=== PATIENT | male | born 1950 | race Caucasian/White ===

== ENCOUNTER → 2016-07-18 | Outpatient (CLI) | payer OTHER, MEDICARE ==
[~2016-07-18] MED LIST: ACET-1138 PO; AMIO0.1T PO; ATOR10TA88 PO; CETI10TA84 PO; CRD200 PO; CZR50 PO; GLC/500 PO; METF1000 PO; MULT-506 PO; NAPR1TAB9 PO; OXYSR10 PO; RXC5 PO; SNK PO; WARF5TAB90 PO; WARF7.5T PO
--- NOTE | 2016-07-18 14:26 | DIAGNOSTIC IMAGING REPORT ---
BONE SCAN 3 PHASE LIMITED CLINICAL HISTORY: Right knee loosening with pain. TECHNIQUE: Immediately and 3 hours following the intravenous administration of 25.6 mCi of technetium 99 M MDP, 3 phase bone scan of the knees was performed. COMPARISON STUDY: Right knee radiograph 07/24/2015. FINDINGS: There is abnormal three-phase soft tissue/periprosthetic uptake within the right knee. This involves the femoral, patellar, and tibial regions. IMPRESSION: Abnormal three-phase uptake within the right knee which is concerning for infected joint prosthesis. Electronically signed by: Zach Marie M.D. 07/18/2016 2:24 PM Dictated Date/Time: 07/18/2016 2:14 PM
== END | disposition home or self-care (01) ==
LOC: C.NUCL 10:12
PROVIDERS: ATTEND Orthopaedic Surgery Sports Medicine
DX: T84.038D Mechanical loosening of other internal prosthetic joint, subsequent encounter (principal); Y83.1 Surgical operation with implant of artificial internal device as the cause of abnormal reaction of the patient, or of later complication, without mention of misadventure at the time of the procedure; Z96.651 Presence of right artificial knee joint

== ENCOUNTER 2016-11-26 10:22 | Inpatient (IN) | payer OTHER, MEDICARE ==
[2016-11-12 08:26] VITALS: BMI 31.0
--- NOTE | 2016-11-12 08:53 | PAT Medication Instructions ---
Service Date November 12, 2016. Current Home Medication List Amiodarone HCl (Amiodarone HCl), 200 MG PO BID Atorvastatin (Lipitor), 10 MG PO HS Cetirizine (Zyrtec), 10 MG PO prn Losartan Potassium (Losartan Potassium), 50 MG PO QAM Metformin Hcl (Glucophage), 1,000 MG PO BID Multivitamin (Multivitamin), 1 TAB PO QAM Naproxen (Aleve), 2 TAB PO Q12 PRN for Pain Warfarin Sodium (Coumadin), 5 MG PO QPM Medication Instructions For Your Scheduled Surgery - Hold the following medications per Promotional Marketing Analyst's instructions: Warfarin Sodium (Coumadin), 5 MG PO QPM - Hold the following medications 7 days prior to surgery per surgeon's instructions: Naproxen (Aleve), 2 TAB PO Q12 PRN for Pain - Hold the following medications 48 hours prior to surgery: Metformin Hcl (Glucophage), 1,000 MG PO BID - Hold the following medications the morning of surgery: Losartan Potassium (Losartan Potassium), 50 MG PO QAM Multivitamin (Multivitamin), 1 TAB PO QAM Cetirizine (Zyrtec), 10 MG PO prn - Take the following medications the morning of surgery with a sip of water OTHERWISE NOTHING TO EAT OR DRINK AFTER MIDNIGHT: Amiodarone HCl (Amiodarone HCl), 200 MG PO BID - Take the following medications as scheduled the night before surgery: Amiodarone HCl (Amiodarone HCl), 200 MG PO BID Atorvastatin (Lipitor), 10 MG PO HS If you have any questions please call us at [phone] or [phone] or [phone]
--- NOTE | 2016-11-12 09:22 | DIAGNOSTIC IMAGING REPORT ---
CHEST PREADMISSION(PA/LAT) CLINICAL HISTORY: Preoperative chest COMPARISON STUDY: 07/19/2015 FINDINGS: The cardiac and mediastinal contours are normal. There is no evidence of focal pulmonary consolidation. There is no evidence of failure. No pleural effusions are visualized.[ IMPRESSION: No active disease in the chest. Electronically signed by: Rey Yanez M.D. 11/12/2016 9:21 AM Dictated Date/Time: 11/12/2016 9:21 AM
[2016-11-12 09:23] LABS: URINE APPEARANCE CLEAR (CLEAR); URINE BILIRUBIN NEG (NEG); URINE COLOR YELLOW; URINE NITRITE NEG (NEG); URINE PH 6.5 (4.5-7.5); URINE SPECIFIC GRAVITY 1.019 (1.000-1.030); UROBILINOGEN NEG (NEG)
[2016-11-12 09:24] LABS: BASO % 0.3 %; BASO ABS # 0.02 K/uL (0-0.2); COMPLETE YES; EOS % 3.1 %; HEMATOCRIT 40.5 % (42-52); IG% 1.5 %; LYMPH % 18.7 %; LYMPH ABS # 1.13 K/uL (1.2-3.4); MEAN CELL VOLUME 93.5 fL (80-100); MEAN CORPUSCULAR HEMOGLOBIN 30.3 pg (25-34); MEAN CORPUSCULAR HGB CONC 32.3 g/dl (32-36); MEAN PLATELET VOLUME 9.8 fL (7.4-10.4); NEUT % 69.4 %; PLATELET COUNT 207 K/uL (130-400); RED BLOOD COUNT 4.33 M/uL (4.7-6.1); WHITE BLOOD COUNT 6.04 K/uL (4.8-10.8)
[2016-11-12 09:25] LABS: MANUAL MICROSCOPIC REQUIRED? NO; REVIEW REQ? NO
[2016-11-12 09:30] LABS: CREATININE 0.8 mg/dl (0.60-1.40)
[2016-11-12 09:31] LABS: BUN/CREATININE RATIO 23.7 (10-20); CALCIUM 9.3 mg/dl (8.5-10.1); INR 1.5 (0.9-1.1); PARTIAL THROMBOPLASTIN RATIO 1.3; POTASSIUM 4.7 mmol/L (3.5-5.1)
[2016-11-12 11:02] LABS: ESTIMATED AVERAGE GLUCOSE 143 mg/dl; HA1C FLAG Normal (Normal)
--- NOTE | 2016-11-19 09:19 | HISTORY & PHYSICAL EXAMINATION ---
DATE OF ADMISSION: 11/26/2016 DATE OF SURGERY: 11/26/2016. PROCEDURE: Right knee arthrotomy, patellar component revision versus total knee revision. HISTORY OF PRESENT ILLNESS: Mr. Ward is a jm 66-year-old male who presents for preoperative evaluation prior to a right total knee replacement revision. He states that he had his right knee replaced on 06/14/[address] Staton. He did well postoperatively. Then on July of 2015 he underwent a revision patellar component to his cemented domed patella with excision of fragment for a patellar fracture that he sustained. Diagnosis at that time was a patellar fracture with loose patellar component, he also underwent a poly change to a 21 mm nonconstrained poly. Since then, patient did rehab and did well. However, over the past few months he has noticed increased crepitation and anterior knee pain. He did undergo a bone scan on 07/18/2016 which showed possible abnormalities around the femoral, patellar and tibial regions. X-rays showing fragmentation of his patella component. After discussing further care will proceed with right knee arthrotomy, patellar component revision, possible trabecular patellar component, versus total knee revision. PAST MEDICAL HISTORY: 1. Hypertension. 2. High cholesterol. 3. Diabetes. 4. History of atrial fibrillation, currently being treated on Coumadin. PAST SURGICAL HISTORY: 1. Left knee replacement 2003. 2. Right total knee replacement in 2013. 3. Right knee revision patellar component and poly exchange in July 2015. 4. Left hip replacement. 5. Hernia repair. FAMILY HISTORY: Noncontributory. SOCIAL HISTORY: He denies a history of smoking or tobacco use. No alcohol consumption. REVIEW OF SYSTEMS: Otherwise negative. Please see HPI for pertinent positives. PHYSICAL EXAMINATION: GENERAL: Jm 66-year-old male in no acute distress. He is alert and oriented x3. HEAD, EYES, EARS, NOSE, AND THROAT: Normocephalic, atraumatic. CARDIAC: Regular rate and rhythm noted. Resting pulse 65 beats per minute. LUNGS: Clear to auscultation without rales or wheeze bilaterally. ABDOMEN: Soft, nontender. Bowel sounds present. EXTREMITIES: Right lower extremity is neurovascularly intact. Calves are soft and nontender. DP pulse +2. He has a well-healed surgical incision. He has normal anatomical alignment. He has diffuse tenderness to the knee which is greatest over the anterior knee joint. He has mild effusion. He has positive crepitation with motion, range of motion is 0/3/115. IMAGING: Reviewed show findings consistent with prior right total knee replacement. Plain films show no signs of loosening of the femoral or tibial components. There is fragmentation noted of his patella. Bone scan showing possible increased activity along all 3 components femoral, tibial, and patellar component of the right total knee replacement. IMPRESSIONS: 1. Painful right total knee replacement with loose patellar component. 2. Past medical history as outlined above. PLAN: Further care was discussed with [facility]. At this point in time, we will proceed with above-mentioned procedure. Will plan on resuming his Coumadin postoperatively. He will discuss with his clinical documentation manager whether bridging with Lovenox prior to this procedure would be necessary. Will plan on discharge home with outpatient physical therapy when stable.
[2016-11-26] VITALS (7 sets, daily range): BP systolic 111–149; BP diastolic 57–96; PULSE 56–66; TEMP 36.3–36.9; O2SAT 89–98; Ht 190.5 cm; Wt 114.0 kg
[~2016-11-26] VITALS: Ht 190.5 cm; Wt 114.0 kg
[~2016-11-26 10:22] MED LIST changes: -ACET-1138 PO; +ACETAMINOPHEN 500 MG TAB PO SCH; -AMIO0.1T PO; +ATOR10TA82 PO; -ATOR10TA88 PO; +ATROPINE SULFATE 0.1 MG/ML 5ML SYR IV PRN; +BUPIVACAINE 0.25% 30 ML VIAL ONE; +BUPIVACAINE 0.5 % 5 MG/1 ML PF 10ML VIAL ONE; +CEFAZOLIN 2000 MG/60 ML D5W 60 ML IV SCH; +DEXAMETHASONE 4 MG TAB PO SCH; +EpHEDrine SULFATE INJ 50 MG/ML AMP IV PRN; +FENTANYL CITRATE INJ 50 MCG/1 ML 2 ML VIAL IV PRN; +GABAPENTIN 300 MG CAP PO SCH; -GLC/500 PO; +HYDROmorphone INJ 1 MG/ML SYR IV PRN; +LABETALOL HCL IV 5 MG/ML 20ML IV PRN; +LACTATED RINGER'S 1000ML 1,000 ML IV SCH; +LACTATED RINGER'S 1000ML IV SCH; +LACTATED RINGER'S 500 ML IV SCH; +MEPERIDINE HCL 25 MG/ML CARP IV PRN; +METOCLOPRAMIDE HCL 10 MG TAB PO SCH; +ONDANSETRON INJ 2 MG/ML 2 ML VIAL IV PRN; -OXYSR10 PO; +ROPIVACAINE 5MG/ML 30 ML 150 MG, BUPIVACAINE/EPINEPHR 0.5% MPF 30 ML, KETOROLAC TROMETH... INFIL SCH; -RXC5 PO; -SNK PO; -WARF7.5T PO
[2016-11-26 11:31] LABS: PROTHROMBIN TIME (PATIENT) 10.9 SECONDS (9.0-12.0)
[2016-11-26] MEDS ORDERED: MIDAZOLAM HCL 1 MG/ML 2ML VIAL ONE (11:43)
[2016-11-26] MEDS ORDERED: FENTANYL CITRATE INJ 50 MCG/1 ML 2 ML VIAL ONE (11:43)
[2016-11-26] MEDS ORDERED: PROPOFOL IV EMULSION 10 MG/ML 20 ML VIAL IV ONE (11:43)
[2016-11-26] MEDS ORDERED: LIDOCAINE HCL 2% 2 ML VIAL (20MG/ML) ONE (11:43)
[2016-11-26] MEDS ORDERED: ONDANSETRON INJ 2 MG/ML 2 ML VIAL ONE (11:43)
--- NOTE | 2016-11-26 11:47 | History & Physical Bridge Note ---
H&P Re-Evaluation Bridge Note: I have examined the patient, reviewed the History & Physical and in the interval since the performance of the History & Physical I have noted the following changes of clinical significance: No changes noted
[2016-11-26] MEDS ORDERED: ORTHO JOINT ANESTHETIC ONE (12:21)
[2016-11-26] MEDS ORDERED: POVIDONE-IODINE OP SOLN 30 ML BTL ONE (12:21)
[2016-11-26] MEDS ORDERED: BACITRACIN 50000 UNIT VIAL ONE (12:21)
--- NOTE | 2016-11-26 14:24 | [facility] Post Operative Brief Note ---
Immediate Operative Summary Operative Date November 26, 2016. Pre-Operative Diagnosis Painful right total knee replacement with loose patellar component Post-Operative Diagnosis Same as preop Procedure(s) Performed Trabecular metal patella with poly change Rt tka Surgeon Dr. Staton School Bus Dispatcher Surgeon(s) Frank Deras PA-C Estimated Blood Loss 5cc Findings avascular fracture patella with fragmentation Specimens Microbiology 1. Joint Fluid Right Knee, gram stain, C& S, aerobic and anerobic left room at 1330 Complication(s) None Disposition Recovery Room / PACU
[2016-11-26] MEDS ORDERED: BISACODYL 10 MG SUPP PR PRN (14:30)
[2016-11-26] MEDS ORDERED: DiphenhydrAMINE HCL 50 MG/ML VIAL IV PRN (14:30)
[2016-11-26] MEDS ORDERED: ALUMINUM/MAGNESIUM/SIMETH (MAALOX MAX) 30 ML UDC PO PRN (14:30)
[2016-11-26] MEDS ORDERED: ZOLPIDEM TARTRATE 5 MG TAB PO PRN (14:30)
[2016-11-26] MEDS ORDERED: ONDANSETRON INJ 2 MG/ML 2 ML VIAL IV PRN (14:30)
[2016-11-26] MEDS ORDERED: CETIRIZINE HCL 10 MG TAB PO PRN (14:30)
[2016-11-26] MEDS ORDERED: SOD PHOSPHATE/SOD BIPHOSPHATE ENEMA 132 ML BTL PR PRN (14:30)
[2016-11-26] MEDS ORDERED: MAGNESIUM HYDROXIDE SUSP 30 ML UDC PO PRN (14:30)
[2016-11-26] MEDS ORDERED: METOCLOPRAMIDE HCL INJ 5 MG/ML 2 ML VIAL IV PRN (14:30)
[2016-11-26] MEDS ORDERED: MoRPHine SULFATE 2 MG/ML CARP IV PRN ×2 (15:00→17:00)
--- NOTE | 2016-11-26 15:28 | OPERATIVE REPORT ---
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 POSTOPERATIVE DIAGNOSIS: Same with mild laxity medial and lateral collateral ligaments. PROCEDURE: Arthrotomy, right knee with trabecular metal patella placement and upsized poly to a 21 x 6 constrained poly. SURGEON: Dr. Staton. BACK TENDER: Frank Deras PA-C who was necessary for prepping, draping, retraction, wound closure of deep fascia, subQ, and skin and was necessary for the case. ESTIMATED BLOOD LOSS: 5 mL. COMPLICATIONS: None. HISTORY OF PRESENT ILLNESS: The patient presents as a very pleasant 66-year-old white male who had undergone a previous knee replacement. Subsequently his postoperative course had a couple traumas and subsequently had developed fragmentation of his patella and loosening of his patellar component. Presents today for removal of his patellar component, placement trabecular metal. Preoperative sed rate, C-reactive protein all nonconsistent with any type of infectious process. Intraoperative Gram stain, no organisms noted. The knee had no gross visualization of any type of infectious process. The femoral and tibial components were well fixed, no evidence of any loosening was noted. The patella was loose freely floating fragment within the knee joint. It as well as multiple fragments of bone were removed. Trabecular metal patella was evaluated. Prior to placing this the poly was changed to a 21 x 6 mm constrained, gave excellent stability in both 0 degrees, 30 degrees and 60 degrees of flexion. No evidence of instability was noted. Subsequently, the poly was placed. The wound been thoroughly irrigated, the trabecular metal patella was sewn into the soft tissues and the main bony fragment of the patella without difficulty. The wound was irrigated with copious amounts of sterile saline solution. Patellar tracking was noted to be excellent. Subsequently all particulate matter and debris was removed. SubQ was closed with 2-0 Vicryl, skin was closed with jai. The patient was taken to recovery room in stable condition. I attest to the content of the Intraoperative Record and any orders documented therein. Any exceptio ns are noted below.
--- NOTE | 2016-11-26 15:36 | DIAGNOSTIC IMAGING REPORT ---
RIGHT KNEE 1 OR 2 VIEWS ROUTINE CLINICAL HISTORY: AP/LATERAL IN PACU RIGHT KNEE Right knee replacement COMPARISON: 07/24/2015 DISCUSSION: Total knee revision. Prosthetic is in good position. Surgical drains are in position. Expected soft tissue postoperative changes noted. Note is made of fragmentation of the [place] pelvis with replacement with what appears to be a patellar prosthetic. Expected soft tissue postoperative change IMPRESSION: Total right knee revision. Electronically signed by: Bob Santana M.D. 11/26/2016 3:35 PM Dictated Date/Time: 11/26/2016 3:34 PM
--- NOTE | 2016-11-26 15:55 | Anesthesiology Progress Note ---
Anesthesia Post Op Note Date & Time November 26, 2016 at 15:55 Vital Signs Pain Intensity: 0 Vital Signs Past 12 Hours Date Time Temp Pulse Resp B/P Pulse Ox O2 Delivery O2 Flow Rate FiO2 11/26/16 15:40 57 14 110/68 94 Nasal Cannula 2 11/26/16 15:25 36.3 57 18 118/69 97 Nasal Cannula 2 11/26/16 15:15 57 17 117/73 97 Nasal Cannula 2 11/26/16 15:05 55 15 115/69 95 Nasal Cannula 2 11/26/16 14:58 36.2 58 16 102/63 95 Nasal Cannula 2 11/26/16 11:02 36.7 59 20 149/78 94 Room Air Notes Mental Status: alert / awake / arousable, participated in evaluation Pt Amnestic to Procedure: Yes Nausea / Vomiting: adequately controlled Pain: adequately controlled Airway Patency, RR, SpO2: stable & adequate BP & HR: stable & adequate Hydration State: stable & adequate Neuraxial Anesthesia: was administered, sensory block is resolving Anesthetic Complications: no major complications apparent
[2016-11-26] MEDS: SODIUM CHLORIDE 0.9% 1000ML 1,000 ML IV SCH ×2 (16:25→16:30)
[2016-11-26] MEDS ORDERED: DEXTROSE 50% 50 ML SYR IV PRN (17:00)
[2016-11-26] MEDS ORDERED: GLUCOSE 40% GEL 15 GM TUBE PO PRN (17:00)
[2016-11-26] MEDS ORDERED: GLUCOSE 10 TABS/TUBE PO PRN (17:00)
[2016-11-26] MEDS ORDERED: MoRPHine SULFATE 4 MG/ML 1 ML CARP\\VIAL IV PRN (17:00)
[2016-11-26] MEDS ORDERED: GLUCAGON FOR INJ 1 MG VIAL SQ PRN (17:00)
[2016-11-26] MEDS ORDERED: MoRPHine SULFATE 10 MG/ML CARP/VIAL IV PRN (17:00)
[2016-11-26] MEDS: FERROUS GLUCONATE 324 MG TAB PO SCH (18:01)
[2016-11-26] MEDS: INSULIN ASPART 100 UNITS/ML 3 ML PEN SC SCH ×2 (18:02→21:49)
[2016-11-26] MEDS: WARFARIN SOD 5 MG TAB PO SCH (18:03)
[2016-11-26] MEDS ORDERED: METFORMIN HCL 500 MG TAB PO SCH (21:00)
[2016-11-26] MEDS ORDERED: ASPIRIN 325 MG ECTAB PO SCH (21:00)
[2016-11-26] MEDS: OXYCODONE HCL 10 MG TABCR (OXYCONTIN) PO SCH (21:50)
[2016-11-26] MEDS: SENNA 8.6 MG TAB PO SCH (21:50)
[2016-11-26] MEDS: AMIODARONE 200 MG TAB PO SCH (21:51)
[2016-11-26] MEDS: DOCUSATE SODIUM 100 MG CAP PO SCH (21:51)
[2016-11-26] MEDS: ATORVASTATIN 10 MG TAB PO SCH (21:51)
[2016-11-26] MEDS: ACETAMINOPHEN 500 MG TAB PO SCH (21:52)
[2016-11-26] MEDS: CEFAZOLIN IV 2,000 MG in DEXTROSE 5% 50ML 50 ML IV SCH (21:52)
[2016-11-27] MEDS: SODIUM CHLORIDE 0.9% 1000ML 1,000 ML IV SCH ×2 (00:01→10:07)
[2016-11-27 04:06] VITALS: BP 123/65; PULSE 57; TEMP 36.4; O2SAT 91
[2016-11-27] MEDS: CEFAZOLIN IV 2,000 MG in DEXTROSE 5% 50ML 50 ML IV SCH (05:33)
[2016-11-27] MEDS: ACETAMINOPHEN 500 MG TAB PO SCH ×4 (05:34→23:07)
[2016-11-27 06:14] LABS: HEMATOCRIT 36.4 % (42-52); MEAN CELL VOLUME 91.2 fL (80-100); MEAN CORPUSCULAR HEMOGLOBIN 29.6 pg (25-34); MEAN CORPUSCULAR HGB CONC 32.4 g/dl (32-36); MEAN PLATELET VOLUME 9.7 fL (7.4-10.4); PLATELET COUNT 216 K/uL (130-400); RED BLOOD COUNT 3.99 M/uL (4.7-6.1); WHITE BLOOD COUNT 13.17 K/uL (4.8-10.8)
[2016-11-27] MEDS: OXYCODONE HCL IR 5 MG TAB (IMMEDIATE RELEASE) PO PRN ×4 (06:30→16:59)
[2016-11-27 06:36] LABS: INR 1.1 (0.9-1.1); PROTHROMBIN TIME (PATIENT) 11.5 SECONDS (9.0-12.0)
[2016-11-27 06:44] LABS: BUN/CREATININE RATIO 18.4 (10-20); CALCIUM 8.1 mg/dl (8.5-10.1); CREATININE 0.68 mg/dl (0.60-1.40); POTASSIUM 3.8 mmol/L (3.5-5.1)
[2016-11-27 07:13] VITALS: BP 112/70; PULSE 50; TEMP 36.3; O2SAT 91
--- NOTE | 2016-11-27 07:37 | Orthopedic Progress Note ---
Orthopedic Progress Note Date of Service November 27, 2016. Subjective Post OP Day: 1 Reports: feeling well, Denies: SOB, calf pain, chest pain, light headedness, nausea / vomiting Additional Notes: Mild knee pain this AM Objective calves soft nontender, N/V intact, dressing C/D/I, A&O x3, toes mobile, hemovac drainage (175ml latest shift) Date Time Temp Pulse Resp B/P Pulse Ox O2 Delivery O2 Flow Rate FiO2 11/27/16 07:13 36.3 50 19 112/70 91 Room Air 11/27/16 04:06 36.4 57 18 123/65 91 CPAP 11/27/16 00:00 Room Air 11/26/16 23:50 36.7 56 16 119/69 95 CPAP 11/26/16 19:36 36.9 66 17 122/74 89 Room Air 11/26/16 18:42 36.8 62 17 111/57 94 Nasal Cannula 2.0 11/26/16 17:22 36.7 65 16 117/72 92 Nasal Cannula 2.0 11/26/16 16:48 36.3 62 16 124/71 98 Nasal Cannula 2.0 11/26/16 16:25 Nasal Cannula 2.0 11/26/16 16:25 36.9 60 18 127/96 96 Nasal Cannula 2.0 11/26/16 16:25 96 Nasal Cannula 2.0 11/26/16 16:05 65 16 119/70 97 Nasal Cannula 2 11/26/16 15:55 59 16 115/71 94 Nasal Cannula 2 11/26/16 15:40 57 14 110/68 94 Nasal Cannula 2 11/26/16 15:25 36.3 57 18 118/69 97 Nasal Cannula 2 11/26/16 15:15 57 17 117/73 97 Nasal Cannula 2 11/26/16 15:05 55 15 115/69 95 Nasal Cannula 2 11/26/16 14:58 36.2 58 16 102/63 95 Nasal Cannula 2 11/26/16 11:02 36.7 59 20 149/78 94 Room Air Laboratory Results 24 Hours: Test 11/26/16 11:04 11/27/16 05:43 Prothromb Time International Ratio 1.0 1.1 Prothrombin Time 10.9 SECONDS 11.5 SECONDS Hematocrit 36.4 % Hemoglobin 11.8 g/dL Assessment & Plan Assessment: POD 1 s/p Revision Right Poly Bearing and Patella Revision Plan: PT/OT Planning for OPPT Inhouse Planning Pain Management: Oxycontin, Morphine, PO Tylenol, Oxy IR DVT Prophylaxis: TEDs, SCDs, Coumadin Discharge Planning Discharge Planning: home with oppt Pain Management: Oxycontin, PO Tylenol, Oxy IR DVT Prophylaxis: TEDs, Coumadin Therapy: Physical Therapy
--- NOTE | 2016-11-27 08:20 | Anesthesiology Progress Note ---
Anesthesia Post Op Note Date & Time November 27, 2016 at 08:20 Vital Signs Pain Intensity: 8.0 Vital Signs Past 12 Hours Date Time Temp Pulse Resp B/P Pulse Ox O2 Delivery O2 Flow Rate FiO2 11/27/16 07:13 36.3 50 19 112/70 91 Room Air 11/27/16 04:06 36.4 57 18 123/65 91 CPAP 11/27/16 00:00 Room Air 11/26/16 23:50 36.7 56 16 119/69 95 CPAP Notes Mental Status: alert / awake / arousable, participated in evaluation Pt Amnestic to Procedure: Yes Nausea / Vomiting: adequately controlled Pain: adequately controlled Airway Patency, RR, SpO2: stable & adequate BP & HR: stable & adequate Hydration State: stable & adequate Neuraxial Anesthesia: sensory block resolved Anesthetic Complications: no major complications apparent
[2016-11-27] MEDS: PANTOprazole SOD 40 MG TAB PO SCH (09:09)
[2016-11-27] MEDS: DOCUSATE SODIUM 100 MG CAP PO SCH ×2 (09:09→21:47)
[2016-11-27] MEDS: LOSARTAN POTASSIUM 50 MG TAB PO SCH (09:09)
[2016-11-27] MEDS: OXYCODONE HCL 10 MG TABCR (OXYCONTIN) PO SCH ×2 (09:09→21:47)
[2016-11-27] MEDS: FERROUS GLUCONATE 324 MG TAB PO SCH ×3 (09:09→18:15)
[2016-11-27] MEDS: MULTIVITAMIN TAB PO SCH (09:09)
[2016-11-27] MEDS: AMIODARONE 200 MG TAB PO SCH ×2 (09:10→21:47)
[2016-11-27] MEDS: INSULIN ASPART 100 UNITS/ML 3 ML PEN SC SCH ×4 (09:11→21:00)
[2016-11-27 09:14] VITALS: PULSE 58
[2016-11-27 11:20] VITALS: BP 117/66; PULSE 56; TEMP 36.7; O2SAT 93
[2016-11-27 14:59] VITALS: BP 112/70; PULSE 46; TEMP 36.9; O2SAT 96
[2016-11-27] MEDS ORDERED: SNK PO (15:42)
[2016-11-27] MEDS ORDERED: RXC5 PO (15:42)
[2016-11-27] MEDS ORDERED: ACET-1138 PO (15:42)
[2016-11-27] MEDS ORDERED: OXYSR10 PO (15:42)
--- NOTE | 2016-11-27 15:46 | Discharge Instructions ---
Discharge Instructions Date of Service November 27, 2016. Admission Reason for Admission: Right Knee Other Mechanical Complications W/Psychologist Clinical Discharge Discharge Diagnosis / Problem: Right Knee Djd Discharge Goals Goal(s): Decrease discomfort, Improve function Activity Recommendations Activity Limitations: per Instructions/Follow-up section Weightbearing Status: Right weightbearing (as tolerated) . Instructions / Follow-Up Instructions / Follow-Up ACTIVITY RECOMMENDATIONS: SELF CARE INSTRUCTIONS AFTER TOTAL KNEE REPLACEMENT A. You may need to continue a physical therapy program after discharge from the hospital. There are several options available to you. Your doctor will assist you in selecting the best one for you. 1. An out-patient facility 2 to 3 times a week for therapy or home therapy. 2. Continue working on all exercises taught to you in the hospital. Your goals should be to increase bending of your knee to 90 degrees and beyond and to fully straighten your knee. B. You may progress at your own pace from walking with a walker or crutches to a cane; then to no assistive devices. C. Make walking a part of your daily routine. Be up as much as comfortable with rest periods throughout the day. Rest with leg elevation is very important. Use the ice wrap frequently for the first 3-4 weeks. D. There are no restrictions on activities. You may ride in a car, shop, participate in home care provider and all social activities. E. Wear the long elastic stockings (MANDY hose) 20 hours a day for 2 weeks after surgery. They can be removed several times a day for laundering and for a bath. F. You may shower, no tub baths until cleared by your doctor. SPECIAL CARE INSTRUCTIONS: VERY IMPORTANT TO READ AND REVIEW A. There are a few signs you need to watch for after you are home. Call [facility] [place] if you notice any of the followin. Increased severe knee pain. Some pain is expected especially when you exercise. 2. Increased swelling in your leg or knee; pain or swelling of the calf muscle in either lower leg. 3. Any fluid drainage from the incision. 4. Shortness of breath or chest pain. B. Please call [facility] at if you have any concerns or questions about your operation or recovery. The doctor or his nurse will return your call promptly. C. You must take antibiotics before dental work, bladder, bowel or other surgery. Your doctor will provide you with a permanent care to carry describing this precaution. IMPORTANT: * YOU WILL NEED TO SEE YOUR PRIMARY CARE PHYSICIAN TO CHECK ON YOUR INR REGULARLY TO POSSIBLY ADJUST YOUR COUMADIN DOSE.* * HIGH RISK PATIENTS MAY BE PRESCRIBED A STRONGER BLOOD THINNER. THIS WILL BE PROVIDED AT DISCHARGE. * CALL IF INCREASED PAIN, REDNESS, DRAINAGE OR FEVER GREATER THAT 101. * WEAR MANDY HOSE 20 HOURS PER DAY FOR 2 WEEKS. * Silverlon- This is a large adhesive bandage that contains silver ions. This helps your incision heal by fighting off bacteria and protecting it from the outside environment. You are permitted to shower with this dressing. This will remain on your incision for 7 days and then should be removed. Some visible blood or drainage through the dressing window is normal. If there is significant drainage or leaking noted before the 7 days notify your doctor's office immediately. Once removed, keep incision clean and dry. If there is any drainage or redness noted, please call your surgeon. . FOLLOW UP VISIT: If appointment is not already scheduled: Please call [facility] [place] to make a follow-up appointment for 2 weeks after your surgery at . Current Hospital Diet Patient's current hospital diet: Diabetes Type 2 Diet Discharge Diet Recommended Diet: Diabetes Type 2 Diet Procedures Procedures Performed: Trabecular metal patella with poly change Rt tka Pending Studies Studies pending at discharge: no Laboratory Results Hemoglobin A1c Test 11/12/16 09:00 Range/Units Estimated Average Glucose 143 mg/dl Hemoglobin A1c 6.6 H 4.5-5.6 % Medical Emergencies . Who to Call and When: Medical Emergencies: If at any time you feel your situation is an emergency, please call 911 immediately. . Non-Emergent Contact Non-Emergency issues call your: Surgeon Call Non-Emergent contact if: temperature is above 101.5, your pain is not controlled, your pain is worsening, wound has increased drainage, wound has increased redness . "Provider Documentation" section prepared by Frank Deras. . VTE Core Measure Inpt VTE Proph given/why not?: Warfarin (Coumadin), Risa Guillory, SCD's [place] Drug Monitoring Program Search Results: patient reviewed within database, no issues identified
[2016-11-27] MEDS: WARFARIN SOD 5 MG TAB PO SCH (15:50)
[2016-11-27] MEDS: ATORVASTATIN 10 MG TAB PO SCH ×2 (21:00→21:47)
[2016-11-27] MEDS: SENNA 8.6 MG TAB PO SCH (21:47)
[2016-11-27 23:48] VITALS: BP 150/80; PULSE 50; TEMP 36.3; O2SAT 91
[2016-11-28] MEDS: ACETAMINOPHEN 500 MG TAB PO SCH (05:46)
[2016-11-28 06:50] VITALS: BP 142/69; PULSE 43; TEMP 36.5; O2SAT 95
[2016-11-28 07:21] LABS: INR 1.1 (0.9-1.1); PROTHROMBIN TIME (PATIENT) 11.4 SECONDS (9.0-12.0)
--- NOTE | 2016-11-28 07:44 | Orthopedic Progress Note ---
Orthopedic Progress Note Date of Service November 28, 2016. Subjective Post OP Day: 2 Reports: feeling well Additional Notes: mild nausea last night with Oxy IR but resolved and none since. Objective calves soft nontender, N/V intact, dressing C/D/I, A&O x3, toes mobile Date Time Temp Pulse Resp B/P Pulse Ox O2 Delivery O2 Flow Rate FiO2 11/28/16 06:50 36.5 43 16 142/69 95 Room Air 11/27/16 23:48 36.3 50 18 150/80 91 Room Air 11/27/16 23:30 Room Air 11/27/16 15:30 Room Air 11/27/16 14:59 36.9 46 16 112/70 96 Room Air 11/27/16 11:20 36.7 56 13 117/66 93 Room Air 11/27/16 09:14 58 Laboratory Results 24 Hours: Test 11/28/16 06:36 Prothromb Time International Ratio 1.1 Prothrombin Time 11.4 SECONDS Assessment & Plan Assessment: POD 2 s/p Revision Right Poly Bearing and Patella Revision Plan: PT/OT Planning for OPPT Plan for dc to home today Inhouse Planning Pain Management: Oxycontin, Morphine, PO Tylenol, Oxy IR DVT Prophylaxis: TEDs, SCDs, Coumadin Discharge Planning Discharge Planning: home with oppt Pain Management: Oxycontin, PO Tylenol, Oxy IR DVT Prophylaxis: TEDs, Coumadin Therapy: Physical Therapy
[2016-11-28 07:45] VITALS: O2SAT 95
[2016-11-28] MEDS: AMIODARONE 200 MG TAB PO SCH (08:06)
[2016-11-28] MEDS: DOCUSATE SODIUM 100 MG CAP PO SCH (08:09)
[2016-11-28] MEDS: FERROUS GLUCONATE 324 MG TAB PO SCH (08:09)
[2016-11-28] MEDS: OXYCODONE HCL 10 MG TABCR (OXYCONTIN) PO SCH (08:09)
[2016-11-28] MEDS: MULTIVITAMIN TAB PO SCH (08:09)
[2016-11-28] MEDS: LOSARTAN POTASSIUM 50 MG TAB PO SCH (08:09)
[2016-11-28] MEDS: PANTOprazole SOD 40 MG TAB PO SCH (08:10)
--- NOTE | 2016-11-28 08:38 | DISCHARGE SUMMARY ---
DATE OF DISCHARGE: 11/28/2016. DISCHARGE DIAGNOSIS: Ligament instability right knee with avascular fracture of patella with fragmentation. SECONDARY DIAGNOSES: Hypertension, hypercholesterolemia, diabetes mellitus type 2 and atrial fibrillation on chronic Coumadin. CONSULTS: None. COMPLICATIONS: None. PROCEDURES: Revision of polyethylene bearing and removal of previous patella with implantation of trabecular metal patella by Dr. Staton on 11/26/2016. BRIEF HISTORY: As dictated in history and physical. HOSPITAL SUMMARY: The patient was admitted on the above date and had the above-noted surgery performed which he tolerated well. On his first postoperative day, he was remaining stable. Pain was controlled. Vital signs were stable. He had no complaints and was comfortable. He was started on physical therapy protocol and continued on DVT prophylaxis and pain management. Dressings remained intact and by his second postoperative day he was progressing well with his physical therapy. Vital signs were stable. He was afebrile. Hemoglobin had dropped to 11.8, but he was otherwise asymptomatic and it was felt he could be discharged to home. For further review, please see chart. LAB AND X-RAY DATA: As per chart. DISCHARGE INSTRUCTIONS: The patient was discharged to home in satisfactory condition on 11/28/2016. DIET: Diabetic. ACTIVITY: Follow TK instruction sheets and special care instructions. Weightbearing as tolerated right lower extremity. Follow up with Dr. Staton in 2 weeks. The patient to call for appointment if one has not been made for you. Follow up with primary care physician to follow your INR blood draws closely. DISCHARGE MEDICATIONS: Acetaminophen 1000 mg p.o. q. 8 hours, oxycodone 5-10 mg p.o. q. 4 hours p.r.n., OxyContin 10 mg p.o. q. 12 hours, senna 17.2 mg at bedtime. Resume taking amiodarone 200 mg p.o. b.i.d., atorvastatin 10 mg p.o. at bedtime, Zyrtec 10 mg p.o. p.r.n., losartan potassium 50 mg p.o. q.a.m., metformin 1000 mg p.o. b.i.d., multivitamin 1 tab p.o. q.a.m. and warfarin 5 mg p.o. q.p.m. Stop taking naproxen.
[2016-11-28] MEDS: INSULIN ASPART 100 UNITS/ML 3 ML PEN SC SCH (08:44)
[2016-11-28 10:43] VITALS: BP 142/69; PULSE 43; TEMP 36.5; O2SAT 95
== END 2016-11-28 11:15 | disposition home or self-care (01) | DRG 464 ==
LOC: ENRESERVDT → ENRESERVTM → C.ACU 10:22 → C.3E 10:30
PROVIDERS: ADMIT Orthopaedic Surgery; ATTEND Orthopaedic Surgery
PROC: 0SPC0JC Removal of Synthetic Substitute from Right Knee Joint, Patellar Surface, Open Approach (ICD-10-PCS; principal; 2016-11-26 12:30)
PROC: 0SPC09Z Removal of Liner from Right Knee Joint, Open Approach (ICD-10-PCS; principal; 2016-11-26 12:30)
PROC: 0SUV09Z Supplement Right Knee Joint, Tibial Surface with Liner, Open Approach (ICD-10-PCS; principal; 2016-11-26 12:30)
PROC: 0SUC09C Supplement Right Knee Joint with Liner, Patellar Surface, Open Approach (ICD-10-PCS; principal; 2016-11-26 12:30)
DX: T84.032A Mechanical loosening of internal right knee prosthetic joint, initial encounter (principal); M87.9 Osteonecrosis, unspecified; T84.84XA Pain due to internal orthopedic prosthetic devices, implants and grafts, initial encounter; M97.11XA Periprosthetic fracture around internal prosthetic right knee joint, initial encounter; Y79.2 Prosthetic and other implants, materials and accessory orthopedic devices associated with adverse incidents; M23.8X1 Other internal derangements of right knee; M25.461 Effusion, right knee; R11.0 Nausea; T40.2X5A Adverse effect of other opioids, initial encounter; Y92.230 Patient room in hospital as the place of occurrence of the external cause; I10 Essential (primary) hypertension; E78.00 Pure hypercholesterolemia, unspecified; I48.91 Unspecified atrial fibrillation; E66.9 Obesity, unspecified; E11.9 Type 2 diabetes mellitus without complications; G47.33 Obstructive sleep apnea (adult) (pediatric); Z68.31 Body mass index [BMI] 31.0-31.9, adult; Z99.89 Dependence on other enabling machines and devices

== ENCOUNTER → 2017-04-17 | Outpatient (CLI) | payer OTHER, MEDICARE ==
[~2017-04-17] MED LIST changes: +ACET-1138 PO; -ACETAMINOPHEN 500 MG TAB PO SCH; -ATOR10TA82 PO; +ATOR10TA88 PO; -ATROPINE SULFATE 0.1 MG/ML 5ML SYR IV PRN; -BUPIVACAINE 0.25% 30 ML VIAL ONE; -BUPIVACAINE 0.5 % 5 MG/1 ML PF 10ML VIAL ONE; -CEFAZOLIN 2000 MG/60 ML D5W 60 ML IV SCH; -DEXAMETHASONE 4 MG TAB PO SCH; -EpHEDrine SULFATE INJ 50 MG/ML AMP IV PRN; -FENTANYL CITRATE INJ 50 MCG/1 ML 2 ML VIAL IV PRN; -GABAPENTIN 300 MG CAP PO SCH; -HYDROmorphone INJ 1 MG/ML SYR IV PRN; -LABETALOL HCL IV 5 MG/ML 20ML IV PRN; -LACTATED RINGER'S 1000ML 1,000 ML IV SCH; -LACTATED RINGER'S 1000ML IV SCH; -LACTATED RINGER'S 500 ML IV SCH; -MEPERIDINE HCL 25 MG/ML CARP IV PRN; -METOCLOPRAMIDE HCL 10 MG TAB PO SCH; -NAPR1TAB9 PO; -ONDANSETRON INJ 2 MG/ML 2 ML VIAL IV PRN; +OXYSR10 PO; -ROPIVACAINE 5MG/ML 30 ML 150 MG, BUPIVACAINE/EPINEPHR 0.5% MPF 30 ML, KETOROLAC TROMETH... INFIL SCH; +RXC5 PO; +SNK PO
[2017-04-17 15:27] LABS: BASO % 0.3 %; BASO ABS # 0.02 K/uL (0-0.2); COMPLETE YES; EOS % 2.6 %; HEMATOCRIT 41.1 % (42-52); IG% 1.1 %; LYMPH % 21.1 %; LYMPH ABS # 1.32 K/uL (1.2-3.4); MEAN CELL VOLUME 92.4 fL (80-100); MEAN CORPUSCULAR HEMOGLOBIN 29.4 pg (25-34); MEAN CORPUSCULAR HGB CONC 31.9 g/dl (32-36); MEAN PLATELET VOLUME 10.2 fL (7.4-10.4); MONO % 6.2 %; NEUT % 68.7 %; PLATELET COUNT 222 K/uL (130-400); RED BLOOD COUNT 4.45 M/uL (4.7-6.1); WHITE BLOOD COUNT 6.27 K/uL (4.8-10.8)
== END | disposition home or self-care (01) ==
LOC: C.CPL 12:40
DX: T84.032A Mechanical loosening of internal right knee prosthetic joint, initial encounter (principal); Y83.1 Surgical operation with implant of artificial internal device as the cause of abnormal reaction of the patient, or of later complication, without mention of misadventure at the time of the procedure